=== PATIENT | female | born 2000 | race Hispanic/Latino ===

== ENCOUNTER 2022-12-15 21:36 | Emergency (ER) | payer MEDICAID ==
[~2022-12-15] VITALS: Ht 157.5 cm; Wt 70.8 kg
[2022-12-15] MEDS ORDERED: CEPH500T PO (23:32)
[2022-12-15] MEDS ORDERED: IBUP-1493 PO (23:32)
[2022-12-15] MEDS ORDERED: SULF1TAB42 PO (23:32)
[2022-12-15 23:42] VITALS: BP 131/68
== END 2022-12-15 23:51 | disposition home or self-care (01) ==
LOC: EDH 21:36
DX: L02.211 Cutaneous abscess of abdominal wall (principal)
CPT/HCPCS: 10060; 10160

== ENCOUNTER 2025-03-27 15:34 | Emergency (ER) | payer MEDICAID ==
[~2025-03-27] VITALS: Ht 157.5 cm; Wt 63.5 kg
[~2025-03-27 15:34] MED LIST: CEPH500T PO; IBUP-1493 PO; SULF1TAB42 PO
[2025-03-27] MEDS ORDERED: CLIN-141 PO (15:50)
--- NOTE | 2025-03-27 15:51 | ERN ---
ED Note History of Present Illness Stated Complaint: RIGHT BOTTOM TOOTHACHE Chief Complaint: Tooth Ache/Pain Time Seen by MD: 15:36 Dictation: PATIENT IS A 24-YEAR-OLD FEMALE COMING IN TODAY WITH RIGHT LOWER MOLAR PAIN SHE HAS HAD FOR SEVERAL DAYS. HE HAS LOW-GRADE FEVER. NO NAUSEA VOMITING NO HISTORY OF DIABETES. SHE STATES SHE WAS JUST SEEN AT [facility] LAST NIGHT AND THEY PLACED A PATCH ON THE FRACTURE TOOTH. THEY GAVE HER IBUPROFEN FOR PAIN AND TOLD HER TO GO FIND A DENTIST. SHE CAME TO [facility] TODAY FOR RELIEF. SHE STATES SHE HAS A AN APPOINTMENT WITH THE DENTIST TOMORROW Allergies: Coded Allergies: No Known Allergies (Unverified Allergy, Unknown, 12/15/22) Home Meds Active Scripts Ibuprofen (Motrin/Advil) 800 Mg Tab, 800 MG PO TID, #30 TAB Prov:MARSHALL AMOS MD 12/15/22 Cephalexin (Cephalexin) 500 Mg Tablet, 500 MG PO QID, #40 TAB Prov:MARSHALL AMOS MD 12/15/22 Sulfamethoxazole/Trimethoprim (Bactrim Ds Tablet) 1 Each Tablet, 1 TAB PO BID for 7 Days, #20 TAB 0 Refills Prov:MARSHALL AMOS MD 12/15/22 Past Medical History Past Medical History: No Pertinent History Surgical History: None Family History: Negative Social History: Negative, Lives with family RN Note Reviewed/Agreed w/PFSH: Yes Review of System Dictation CONSTITUTIONAL: NEGATIVE EXCEPT FOR HPI FEVER HEAD/FACE: NEGATIVE EXCEPT FOR HPI EENT: NEGATIVE EXCEPT FOR HPI RIGHT LOWER MOLAR PAIN, NUMBER 30 WITH TOOTH FRACTURE RESPIRATORY: NEGATIVE EXCEPT FOR HPI GASTROINTESTINAL/ABDOMINAL: NEGATIVE EXCEPT FOR HPI GENITOURINARY: NEGATIVE EXCEPT FOR HPI MUSCULOSKELETAL: NEGATIVE EXCEPT FOR HPI INTEGUMENTARY: NEGATIVE EXCEPT FOR HPI NEUROLOGICAL/PSYCH: NEGATIVE EXCEPT FOR HPI HEMATOLOGIC/LYMPHATIC: NEGATIVE EXCEPT FOR HPI ALL SYSTEMS NEGATIVE, EXCEPT NOTED ABOVE. 13 POINT REVIEW OF SYSTEMS ASSESSED AND ALL NEGATIVE EXCEPT FOR ABOVE. Initial Vital Sign VS Vital Signs Date Time Temp Pulse Resp B/P (MAP) Pulse Ox O2 Delivery O2 Flow Rate FiO2 03/27/25 15:35 102.0 72 18 105/55 99 Room Air Physical Exam Dictation VITAL SIGNS REVIEWED GENERAL APPEARANCE: ALERT, ORIENTED X 3, MODERATE ACUTE DISTRESS, WELL DEVELOPED, NOURISHED. HEAD AND FACE: NON-TRAUMATIC. EYES: PERRL, PINK CONJUNCTIVAS, EYELID NO TRAUMA, ANTERIOR CHAMBER WITH ARCUS SENILIS. EARS: PINNAS INTACT AND NO SIGNS OF TRAUMA OR ERYTHEMA EAR CANALS CLEAR AND NO DISCHARGE TM NO ERYTHEMA NOSE: NO DISCHARGE, NO BLEEDING. OROPHARYNX: MOUTH NORMAL, TONGUE PINK, DENTAL FRACTURE WITH PATCH TO NUMBER 30 MILD GINGIVAL ERYTHEMA PROXIMAL NUMBER 30 PHARYNX CLEAR,NO ERYTHEMA, TONSILS NO EXUDATES, NO ABSCESSES NOTED, MUCOUS MEMBRANE MOIST NECK: SUPPLE, NON-TENDER, NO THYROMEGALY, NO MASSES, NO JVD, NO BRUITS BREAST:DEFERRED CHEST:NO TENDERNESS, NO CREPITUS, NO PARADOXICAL MOVEMENT, NO RETRACTIONS LUNGS:CLEAR, WELL-VENTILATED, SYMMETRIC, NO RALES, NO WHEEZING, NO RHONCHI, NO STRIDOR, GOOD BREATH SOUNDS BILATERALLY HEART: REGULAR RATE, REGULAR RHYTHM, NO MURMUR, NO GALLOPS VASCULAR: NO PERIPHERAL EDEMA, ABDOMEN: SOFT, POSITIVE BOWEL SOUNDS, NONDISTENDED, NO GUARDING, NONTENDER, NO REBOUND, NO MASSES NO HEPATOMEGALY, NO SPLENOMEGALY, NO PRATER'S SIGN, NO HERNIAS. RECTAL: DEFERRED GENITAL: DEFERRED NEUROLOGICAL: NORMAL SPEECH, MOTOR FUNCTION INTACT, SENSORY FUNCTION INTACT MUSCULOSKELETAL: NECK NONTENDER, FULL RANGE OF MOTION, BACK NONTENDER, FULL RANGE OF MOTION, EXTREMITIES: NONTENDER, FULL RANGE OF MOTION SKIN: COLOR PINK, DRY, NO TURGOR, NO RASH, NO LACERATIONS, NO ABRASIONS, NO CONTUSIONS. LYMPHATIC: DEFERRED Results (Laboratory/Radiology) Labs Reviewed?: Yes ED Course ED Course Orders Procedure Category Date Status Time Clindamycin 150mg Cap PHA 03/27/25 In Process (Cleocin 150mg Cap 16:00 Acetaminophen 500mg PHA 03/27/25 In Process Tab (Tylenol 500mg T 16:00 Current Medications Medications (Trade) Dose Ordered Sig/Jessika Route PRN Reason Start Time Stop Time Status Last Admin Dose Admin Acetaminophen (TYLenol 500MG TAB) 1,000 mg ONCE ONCE PO 03/27/25 16:00 03/27/25 16:01 Clindamycin HCl (Cleocin 150mg Cap) 600 mg ONCE ONCE PO 03/27/25 16:00 03/27/25 16:01 Vital Signs Date Time Temp Pulse Resp B/P (MAP) Pulse Ox O2 Delivery O2 Flow Rate FiO2 03/27/25 15:35 102.0 72 18 105/55 99 Room Air 1546/PATIENT WAS ADVISED THAT THERE WAS NO DENTIST IN [facility] ER. I WE WILL LET HER WERE CLINDAMYCIN 600 MG AND WE WILL PRESCRIBE HER CLI NDAMYCIN FOR OUTPATIENT. TOLD HER TO KEEP HER APPOINTMENT WITH HER DENTIST TOMORROW. Medical Decision Making MDM MEDICAL DISCHARGE MAKING BASED ON EMPIRIC TREATMENT FOR DENTALGIA AND POSSIBLE INFECTION. PATIENT LOADED WITH CLINDAMYCIN 600 MG P.O. PATIENT IS STRONGLY ADVISED TO KEEP HER APPOINTMENT WITH HER DENTIST TOMORROW FOR MANAGEMENT SENT HOME WITH CLINDAMYCIN THREE HIM ARRIVES Q.6 HOURS FOR 10 DAYS CONTINUE IBUPROFEN FROM HER VISIT TO [facility]. DX & DISP Disposition: Discharge Departure Impression: Primary Impression: Dental caries extending into pulp Condition: Stable Scripts Clindamycin HCl (Clindamycin HCl) 300 Mg Capsule 1 CAP PO QID for 10 Days, #40 CAP 0 Refills Prov: CLEOPATRA MILLER [employer]ISHER 03/27/25 Additional Instructions: FOLLOW-UP WITH PRIMARY CARE PROVIDER IN 1 TO 2 DAYS. TAKE MEDICATIONS DIRECTED HERE IN THE EMERGENCY ROOM. OKAY TO CONTINUE HOME MEDICATIONS UNLESS OTHERWISE DISCUSSED DURING YOUR VISIT IN THE EMERGENCY ROOM TODAY. RETURN TO YOUR NEAREST EMERGENCY ROOM IF SYMPTOMS WORSEN OR IF THERE IS NO IMPROVEMENT. CALL 911 IF YOU NEED IMMEDIATE ASSISTANCE. TAKE TYLENOL OR MOTRIN [id number] NEEDED AND IF NO CONTRAINDICATIONS ARE PRESENT. INCREASE ORAL HYDRATION. A WOUND CULTURE OR URINE CULTURE WAS ORDERED HERE IN THE EMERGENCY ROOM DEPARTMENT PLEASE FOLLOW-UP WITH PRIMARY CARE PROVIDER AND ADVISE THEM TO GET REPEAT PORTS FROM OUR FACILITY. IF YOU HAD ANY VERONICA WRAP/SPLINTS THAT WERE APPLIED HERE, PLEASE DO NOT REMOVE THEM UNTIL YOU SEE YOUR PRIMARY CARE OR SPECIALTY. CONTINUE PAIN MEDICATIONS FROM YOUR VISIT TO [facility] YESTERDAY. TAKE CLINDAMYCIN DIRECTED UNTIL GONE. FOLLOW UP WITH YOUR DENTIST TOMORROW Referrals: SELF,REFERRAL (PCP) Time of Disposition: 15:49 I have reviewed the case, and I agree with, Diagnosis and Plan CLEOPATRA MILLER NP Mar 27, 2025 15:51
[2025-03-27] MEDS: CLINDAMYCIN 150 MG CAP PO ONE (16:22)
[2025-03-27 16:23] VITALS: TEMP 102
[2025-03-27 16:26] VITALS: BP 108/60; PULSE 70; RESP 16; TEMP 102.1; O2SAT 98
== END 2025-03-27 16:34 | disposition home or self-care (01) ==
LOC: EDH 15:34
DX: K02.9 Dental caries, unspecified (principal); Z79.1 Long term (current) use of non-steroidal anti-inflammatories (NSAID); Z79.899 Other long term (current) drug therapy
CPT/HCPCS: 99283